=== PATIENT | female | born 1930 | race Caucasian/White ===

== ENCOUNTER 2017-09-09 05:12 | Inpatient (IN) | payer OTHER, MEDICARE ==
--- NOTE | 2017-09-09 05:40 | PDOC ---
History of Present Illness - General Chief Complaint: Nausea/Vomiting Stated Complaint: N/V/D Time Seen by Provider: 09/09/17 05:39 History Source: Patient Exam Limitations: No Limitations - History of Present Illness Initial Comments: 09/09/17 05:49 This is an elderly 87-year-old female brought in by her family for evaluation of nausea vomiting and diarrhea. Patient has a history of small bowel obstruction with similar symptoms in the past. Patient denies any fevers or chills. Patient is complaining of some diffuse abdominal pain and abdominal distention. PAST MEDICAL HISTORY: no significant history PAST SURGICAL HISTORY: no significant history FAMILY HISTORY: no pertinant history SOCIAL HISTORY: Pt lives with family and is employed. MEDICATIONS: reviewed ALLERGIES: As per nursing notes Review of Systems General: No fevers or chills, no weakness, no weight loss HEENT: No change in vision. No sore throat,. No ear pain CardioVascular: No chest pain or shortness of breath Respiratory:No cough, or wheezing. Gastrointestinal: Positive nausea vomiting and diarrhea, positive history of SBO Genitourinary: No dysuria, hematuria, or frequency Musculoskeletal: No joint or muscle pain or swelling Neurologic: No headache, vertigo, dizziness or loss of consciousness Psychiatric: nor depression Skin: No rashes or easy bruising Endocrine: no increased thirst or abnormal weight change Allergic: no skin or latex allergy All other systems reviewed and normal Exam: General: Well-nourished well-developed individual, no acute distress HEENT: Throat: Normal, tonsils normal, no erythema or exudate Neck: Supple, no meningeal signs, no lymphadenopathy Eyes::Pupils equal reactive and round, extraocular motion intact Chest: Nontender to palpation Cardiac: S1-S2 normal, regular rate and rhythm, no murmurs rubs or gallops Respiratory: Lungs clear to auscultation bilateral Abdomen: Soft, somewhat distended, normal bowel sounds, moderately tender diffusely to palpation Extremities: Warm, dry, no cyanosis, clubbing, or edema Skin: No rashes Neuro: Alert and oriented x3, CN II - XII intact, nonfocal exam with normal strength, normal sensation, normal reflexes, normal gait, Psych: Normal mood and affect Medical decision making this is an 87-year-old female who comes in with nausea vomiting and diarrhea most likely secondary to a partial small bowel obstruction. We'll order workup including CBC, comp, lipase, EKG, CT abdomen and pelvis. While reassessed and follow results of workup 09/09/17 06:51 Reevaluation patient feels much better after some morphine and Zofran and fluids. Workup is still pending. Care of this patient was transferred to Dr. Anderson at 7am. Case discussed in detail with oncoming Emergency Physician including history, physical exam and ancillary studies. Oncoming Emergency Physician has assumed care for the patient and will complete the evaluation and treatment. Patient is aware of the plan. Pt is clinically unchanged and stable. Past History - Past Medical History Allergies/Adverse Reactions: Allergies Allergy/AdvReac Type Severity Reaction Status Date / Time codeine [Codeine] Allergy Unknown Verified 10/04/12 08:43 nitrofurantoin Allergy Verified 09/09/17 05:39 strawberry Allergy Verified 09/09/17 05:40 escitalopram [From Lexapro] AdvReac Verified 09/09/17 05:39 Home Medications: Ambulatory Orders Unobtainable [Unobtainable] 09/09/17 COPD: No GI Disorders: Yes (IBS, PARTIAL BOWEL OBSTRUCTIONS) Disorders: Yes (FREQUENT UTI'S) - Surgical History Appendectomy: Yes - Suicide/Smoking/Psychosocial Hx Smoking Status: No Smoking History: Unknown if ever smoked Number of Cigarettes Smoked Daily: 0 Drug/Substance Use Hx: No Substance Use Type: None *Physical Exam - Vital Signs Last Vital Signs Temp Pulse Resp BP Pulse Ox 97.4 F L 73 18 142/79 99 09/09/17 05:17 09/09/17 05:17 09/09/17 05:17 09/09/17 05:17 09/09/17 05:17 ED Treatment Course - LABORATORY CBC & Chemistry Diagram: 09/09/17 05:35 09/09/17 05:35 *DC/Admit/Observation/Transfer Diagnosis at time of Disposition: Abdominal pain Qualifiers: Abdominal location: generalized Qualified Code(s): R10.84 - Generalized abdominal pain - Discharge Dispostion Condition at time of disposition: Stable - Referrals Referrals: ON STAFF,NOT [Primary Care Provider] - - Patient Instructions - Post Discharge Activity
[2017-09-09] MEDS ORDERED: morphine CARPU-JECT 4 MG/1 ML DISP.SYRIN IVPUSH ONE (05:56)
[2017-09-09] MEDS ORDERED: ONDANSETRON 4 MG/2 ML VIAL IVPB ONE (05:56)
[2017-09-09] MEDS ORDERED: SODIUM CHLORIDE 1,000 ML IV ONE (05:56)
[2017-09-09] MEDS ORDERED: morphine SULFATE 4 MG/ML VIAL ONE (05:59)
[2017-09-09] MEDS ORDERED: ONDANSETRON 4 MG/2 ML VIAL ONE (05:59)
[2017-09-09 06:15] LABS: BASO % 0.2 % (0-2.0); EOS % 0.1 % (0-4.5); HEMATOCRIT 39.1 % (32.4-45.2); HEMOGLOBIN 13.1 GM/dL (10.7-15.3); LYMPH % 11.8 % (8-40); MCH 28.1 pg (25.7-33.7); MCHC 33.7 g/dl (32.0-36.0); MEAN CELL VOLUME 83.5 fl (80-96); MONO % 5.3 % (3.8-10.2); NEUT % 82.6 % (42.8-82.8); PLATELET COUNT 266 K/MM3 (134-434); RBC 4.68 M/mm3 (3.60-5.2); RDW 15.4 % (11.6-15.6); WHITE BLOOD COUNT 14.1 K/mm3 (4.0-10.0)
[2017-09-09 07:04] LABS: ALK PHOS 48 U/L (45-117); ANION GAP 11 (8-16); BILIRUBIN,TOTAL 0.6 mg/dL (0.2-1.0); BLOOD UREA NITROGEN 14 mg/dL (7-18); CALCIUM 9.4 mg/dL (8.5-10.1); CHLORIDE 95 mmol/L (98-107); CO2 26 mmol/L (21-32); CREATININE 0.6 mg/dL (0.55-1.02); GLUCOSE,RANDOM 145 mg/dL (74-106); LIPASE 117 U/L (73-393); POTASSIUM 3.6 mmol/L (3.5-5.1); SGOT/AST 14 U/L (15-37); SGPT/ALT 15 U/L (12-78); SODIUM 132 mmol/L (136-145); TOT PROT 7.1 g/dl (6.4-8.2)
[2017-09-09] MEDS ORDERED: SODIUM CHLORIDE 1,000 ML IV SCH (08:45)
--- NOTE | 2017-09-09 10:15 | PDOC ---
*Physical Exam - Vital Signs Last Vital Signs Temp Pulse Resp BP Pulse Ox 97.4 F L 73 18 142/79 99 09/09/17 05:17 09/09/17 05:17 09/09/17 05:17 09/09/17 05:17 09/09/17 05:17 ED Treatment Course - LABORATORY CBC & Chemistry Diagram: 09/10/17 06:00 09/10/17 06:00 - ADDITIONAL ORDERS Additional order review: Laboratory Results 09/09/17 05:35 Sodium 132 L Potassium 3.6 Chloride 95 L Carbon Dioxide 26 Anion Gap 11 BUN 14 Creatinine 0.6 Creat Clearance w eGFR > 60 Random Glucose 145 H Calcium 9.4 Total Bilirubin 0.6 AST 14 L ALT 15 Alkaline Phosphatase 48 Total Protein 7.1 Albumin 4.0 Lipase 117 09/09/17 05:35 RBC 4.68 MCV 83.5 MCHC 33.7 RDW 15.4 MPV 8.0 Neutrophils % 82.6 Lymphocytes % 11.8 Monocytes % 5.3 Eosinophils % 0.1 Basophils % 0.2 - Medications Given in the ED: ED Medications Discontinued Medications Generic Name Dose Route Start Last Admin Trade Name Freq PRN Reason Stop Dose Admin Sodium Chloride 1,000 mls @ 1,000 mls/hr 09/09/17 05:56 09/09/17 05:58 Normal Saline - IV 09/09/17 06:55 1,000 mls/hr .Q1H ONE Administration Morphine Sulfate 4 mg 09/09/17 05:56 09/09/17 05:58 Morphine Injection - IVPUSH 09/09/17 05:57 4 mg ONCE ONE Administration Ondansetron HCl 8 mg 09/09/17 05:56 09/09/17 05:58 Zofran Injection IVPB 09/09/17 05:57 8 mg ONCE ONE Administration Medical Decision Making - Medical Decision Making 09/09/17 10:20 This patient is an 87 yo F with a prior history of SBO who presented overnight due to nausea and vomiting CT demonstrates moderately dilated loops of small bowel through out the abdomen and pelvis Colon does contain air and stool but is largely collapsed high grade partial SBO Pt refusing NGT Call placed to daughter to inform her She is requesting that pt doctor - Dr Brown be contacted Call placed to [phone] 09/09/17 12:13 Case reviewed with Hospitalist Admitted to their service Case reviewed with Dr Altman Will continue IV hydration Clinical Impression: small bowel obstruction, initial presentation *DC/Admit/Observation/Transfer Diagnosis at time of Disposition: Abdominal pain Qualifiers: Abdominal location: generalized Qualified Code(s): R10.84 - Generalized abdominal pain - Discharge Dispostion Condition at time of disposition: Stable Admit: Yes - Referrals - Patient Instructions - Post Discharge Activity
[2017-09-09 10:29] LABS: PH,URINE 7.5 (4.5-8); URINE BILIRUBIN Negative (NEGATIVE); URINE BLOOD Negative (NEGATIVE); URINE GLUCOSE (UA) Negative (NEGATIVE); URINE KETONE 1+ (NEGATIVE); URINE LEUK ESTERASE Negative (NEGATIVE); URINE NITRITE Negative (NEGATIVE); URINE PROTEIN Negative (NEGATIVE); URINE UROBILINOGEN 0.2 (0.2-1.0)
[2017-09-09 10:30] LABS: URINE APPEARANCE SL CLOUDY; URINE COLOR AMBER
--- NOTE | 2017-09-09 12:01 | HP ---
CHIEF COMPLAINT: GI: Dr. 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 Patient was in her usual state of health until last evening. After eating dinner she developed abdominal discomfort which progressed to pain. At around midnight she had several large bowel movements with well-formed stools. Several hours later she vomited about 5-6 times. The vomitus was mostly the food she ate for dinner. Patient called EMS and was brought to the ED. Vomiting and diarrhea have subsided, and pain has significantly improved. Patient denies melena, hematochezia, hematuria. She denies fever, sweats, chills. She has not had diarrhea. She was treated four weeks ago for a UTI, received three doses of ertapenem and then continued on PO Cipro. Patient denies UTI symptoms at this time. ER course was notable for: (1) WBC 14.1 (2) CTAP: high-grade partial SBO (3) Afebrile Recent Travel: No PAST MEDICAL HISTORY: Recurrent UTIs Uterine cancer Irritable bowel syndrome Recurrent SBOs - 3 or 4 over past 15 years PAST SURGICAL HISTORY: Appendectomy 1961 Hysterectomy 1987 (followed by radiation) Social History: Smoking: quit 60 years ago Alcohol: glass of wine before dinner Drugs: no Family History: non-contributory Allergies codeine [Codeine] Allergy (Unknown, Verified 10/04/12 08:43) nitrofurantoin Allergy (Verified 09/09/17 05:39) strawberry Allergy (Verified 09/09/17 05:40) escitalopram [From Lexapro] Adverse Reaction (Verified 09/09/17 05:39) HOME MEDICATIONS: Home Medications Medication Instructions Recorded Methenamine Hippurate [Hiprex [Nf] 1 gm PO BID 09/09/17 -] REVIEW OF SYSTEMS CONSTITUTIONAL: Absent: fever, chills, diaphoresis, generalized weakness, malaise, loss of appetite, weight change HEENT: Absent: rhinorrhea, nasal congestion, throat pain, throat swelling, difficulty swallowing, mouth swelling, ear pain, eye pain, visual changes CARDIOVASCULAR: Absent: chest pain, syncope, palpitations, irregular heart rate, lightheadedness , peripheral edema RESPIRATORY: Absent: cough, shortness of breath, dyspnea with exertion, orthopnea, wheezing, stridor, hemoptysis GASTROINTESTINAL: +abdominal pain, nausea, vomiting Absent: abdominal distension, diarrhea, constipation, melena, hematochezia GENITOURINARY: Absent: dysuria, frequency, urgency, hesitancy, hematuria, flank pain, genital pain MUSCULOSKELETAL: Absent: myalgia, arthralgia, joint swelling, back pain, neck pain SKIN: Absent: rash, itching, pallor HEMATOLOGIC/IMMUNOLOGIC: Absent: easy bleeding, easy bruising, lymphadenopathy, frequent infections ENDOCRINE: Absent: unexplained weight gain, unexplained weight loss, heat intolerance, cold intolerance NEUROLOGIC: Absent: headache, focal weakness or paresthesias, dizziness, unsteady gait, seizure, mental status changes, bladder or bowel incontinence PSYCHIATRIC: Absent: anxiety, depression, suicidal or homicidal ideation, hallucinations. PHYSICAL EXAMINATION Vital Signs - 24 hr 09/09/17 09/09/17 09/09/17 05:17 09:00 10:23 Temperature 97.4 F L Pulse Rate 73 Pulse Rate [ 80 82 Left] Respiratory 18 18 Rate Blood Pressure 142/79 Blood Pressure 126/68 128/60 [Right Arm] O2 Sat by Pulse 99 97 97 Oximetry (%) GENERAL: Awake, alert, and fully oriented, in no acute distress. HEAD: Normal with no signs of trauma. EYES: Pupils equal, round and reactive to light, extraocular movements intact, sclera anicteric, conjunctiva clear. No lid lag. EARS, NOSE, THROAT: Ears normal, nares patent, oropharynx clear without exudates. Moist mucous membranes. NECK: Normal range of motion, supple without lymphadenopathy, JVD, or masses. LUNGS: Breath sounds equal, clear to auscultation bilaterally. No wheezes, and no crackles. No accessory muscle use. HEART: Regular rate and rhythm, normal S1 and S2 ABDOMEN: Soft, nontender, not distended, absent bowel sounds MUSCULOSKELETAL: Normal range of motion at all joints. No bony deformities or tenderness. No CVA tenderness. UPPER EXTREMITIES: 2+ pulses, warm, well-perfused. No cyanosis. No clubbing. No peripheral edema. LOWER EXTREMITIES: 2+ pulses, warm, well-perfused. No calf tenderness. No peripheral edema. NEUROLOGICAL: Cranial nerves II-XII intact. Normal speech. Normal gait. Laboratory Results - last 24 hr 09/09/17 09/09/17 09/09/17 05:35 05:35 10:12 WBC 14.1 H RBC 4.68 Hgb 13.1 Hct 39.1 MCV 83.5 MCH 28.1 MCHC 33.7 RDW 15.4 Plt Count 266 MPV 8.0 Neutrophils % 82.6 Lymphocytes % 11.8 Monocytes % 5.3 Eosinophils % 0.1 Basophils % 0.2 Sodium 132 L Potassium 3.6 Chloride 95 L Carbon Dioxide 26 Anion Gap 11 BUN 14 Creatinine 0.6 Creat Clearance w eGFR > 60 Random Glucose 145 H Calcium 9.4 Total Bilirubin 0.6 AST 14 L ALT 15 Alkaline Phosphatase 48 Total Protein 7.1 Albumin 4.0 Lipase 117 Urine Color Terri Urine Appearance Sl cloudy Urine pH 7.5 Ur Specific [place] 1.015 Urine Protein Negative Urine Glucose (UA) Negative Urine Ketones 1+ H Urine Blood Negative Urine Nitrite Negative Urine Bilirubin Negative Urine Urobilinogen 0.2 Ur Leukocyte Esterase Negative ASSESSMENT/PLAN: 87 year-old female with a PMH and PSH significant for recurrent UTIs, irritable bowel syndrome, uterine cancer s/p hysterectomy and radiation (1987), s/p appendectomy (1961), and recurrent SBOs (3 or 4 over past 15 years, none requiring surgery). SBO Recurrent SBOs --CTAP: high-grade partial SBO --NPO --IV fluids --will need NGT if vomiting recurs --mild leukocytosis may be from vomiting, no fever; cultures collected and sent; no abx for now; monitor fever curve closely --surgical consult Dr. Altman requested Recurrent UTIs --most recent UTI one month ago, ertapenem x 3 days followed by a course of Cipro --UA negative --continue methenamine Irritable bowel syndrome --keep NPO FEN Fluids: D5NS@100mL/hr Electrolytes: replete as indicated Nutrition: NPO DVT prophylaxis: subq heparin Physical therapy Dispo: continues to require inpatient care. Full code. Visit type - Emergency Visit Emergency Visit: Yes ED Registration Date: 09/09/17 Care time: The patient presented to the Emergency Department on the above date and was hospitalized for further evaluation of their emergent condition. - New Patient This patient is new to me today: Yes Date on this admission: 09/09/17 - Critical Care Critical Care patient: No Hospitalist Screening - Colonoscopy Questionnaire Colonoscopy Questionnaire: Colonoscopy Questionnaire - Patient: 50 - 75 years old and never had a screening colonoscopy: No History of colon or rectal polyps, or CA: Yes (uterine cancer) History of IBD, Crohn's disease or UC: Yes History of abdominal radiation therapy as a child: No - Relative: 1 with colon or rectal CA, or polyps at age 60 or younger: Unknown Colon or rectal CA diagnosed at age 45 or younger: Unknown Multiple relatives with colon or rectal CA: Unknown (Patient states last colonoscopy x 3 years; told by Dr. Dunlap no further testing at her age) - Outcome: Screening Result: Positive Screen
[2017-09-09] MEDS ORDERED: SODIUM CHLORIDE 1,000 ML IV STA (12:06)
[2017-09-09] MEDS ORDERED: ONDANSETRON 4 MG/2 ML VIAL IVPUSH PRN (12:46)
[2017-09-09] MEDS ORDERED: DEXTROSE 5%-NORMAL SALINE 1,000 ML IV SCH (13:00)
[2017-09-09 13:32] VITALS: BMI 21.2
[2017-09-09] MEDS ORDERED: HEPARIN NA (PORCINE) 5,000 UNITS/ML 1ML VIAL SQ SCH (18:00)
--- NOTE | 2017-09-09 18:37 | EKG ---
Test Reason : Blood Pressure : / mmHG Vent. Rate : 077 BPM Atrial Rate : 077 BPM P-R Int : 182 ms QRS Dur : 074 ms QT Int : 420 ms P-R-T Axes : 036 006 101 degrees QTc Int : 475 ms NORMAL SINUS RHYTHM NONSPECIFIC T WAVE ABNORMALITY ABNORMAL ECG NO PREVIOUS ECGS AVAILABLE Confirmed by LINDA LANDRY, DORA ([id number]) on 09/09/2017 6:36:49 PM Referred By: TK BRIZUELA Confirmed By:DORA MCKEON MD
[2017-09-09] MEDS: DEXTROSE 5%-NORMAL SALINE 1,000 ML IV SCH (19:12)
[2017-09-09] MEDS: HEPARIN NA (PORCINE) 5,000 UNITS/ML 1ML VIAL SQ SCH (21:03)
[2017-09-09] MEDS: ACETAMINOPHEN 1000 MG/100 ML VIAL (NON FORMULARY) IVPB PRN (21:12)
[2017-09-10 08:54] LABS: ALK PHOS 30 U/L (32-92); ANION GAP 4 (8-16); BASO % 0.4 % (0-2.0); BILIRUBIN,TOTAL 0.6 mg/dl (0.2-1.0); BLOOD UREA NITROGEN 6 mg/dl (7-18); CALCIUM 7.3 mg/dl (8.4-10.2); CHLORIDE 105 mmol/L (98-107); CO2 24 mmol/L (22-28); CREATININE 0.4 mg/dl (0.6-1.3); EOS % 1.3 % (0-4.5); GLUCOSE,RANDOM 97 mg/dl (74-106); HEMATOCRIT 32.2 % (32.4-45.2); HEMOGLOBIN 10.6 GM/dl (10.7-15.3); LYMPH % 36.6 % (8-40); MAGNESIUM 1.7 mg/dL (1.8-2.4); MCH 27.7 pg (25.7-33.7); MCHC 32.8 g/dl (32.0-36.0); MEAN CELL VOLUME 84.4 fl (80-96); MEAN PLT VOLUME 7.7 fl (7.5-11.1); MONO % 8.5 % (3.8-10.2); NEUT % 53.2 % (42.8-82.8); PHOSPHOROUS 2.2 mg/dl (2.5-4.6); PLATELET COUNT 241 K/MM3 (134-434); RBC 3.82 M/mm3 (3.60-5.2); RDW 14.6 % (11.6-15.6); SGOT/AST 16 U/L (10-42); SGPT/ALT 11 U/L (10-40); SODIUM 133 mmol/L (136-145); TOT PROT 4.8 g/dl (6.4-8.3); WHITE BLOOD COUNT 3.9 K/mm3 (4.0-10.8)
[2017-09-10 09:06] LABS: POTASSIUM 2.9 mmol/L (3.5-5.1)
--- NOTE | 2017-09-10 09:49 | CONSULT ---
- Consultation REQUESTING PROVIDER: YADIEL Kulkarni CONSULT REQUEST: We have been asked to surgically evaluate this patient for management of a bowel obstruction PCP:Marga Kulkarni HISTORY OF PRESENT ILLNESS:87 y/o w/female presented to the [facility] ER w/ n/v/ abdominal pain; w/u revealed a " partial high grade sbo"; she was admitted for further management; she had an SBO 3-4 months ago that responded to conservative tx. She has no n/v today; has not passed flatus. PMHx: as noted in H and P PSHx: KATHERYN/appendectomy Home Medications Medication Instructions Recorded Methenamine Hippurate [Hiprex [Nf] 1 gm PO BID 09/09/17 -] Allergies Allergy/AdvReac Type Severity Reaction Status Date / Time codeine [Codeine] Allergy Unknown Verified 10/04/12 08:43 nitrofurantoin Allergy Verified 09/09/17 05:39 strawberry Allergy Verified 09/09/17 05:40 escitalopram [From Lexapro] AdvReac Verified 09/09/17 05:39 PHYSICAL EXAM: GENERAL: Awake, alert, and fully oriented, in no acute distress. HEAD: Normal with no signs of trauma. EYES: PERRL, sclera anicteric, conjunctiva clear. NECK: Normal ROM, supple without lymphadenopathy, JVD, or masses. ABDOMEN: Soft, nontender, not distended, hypoactive bowel sounds, no guarding, no rebound, no masses. No organomegaly. No hernias; healed surgical scras. MUSCULOSKELETAL: Normal ROM at all joints. No bony deformities or tenderness. No CVA tenderness. UPPER EXTREMITIES: 2+ pulses, warm, well-perfused. No cyanosis. Cap refill <2 seconds. No peripheral edema. LOWER EXTREMITIES: 2+ pulses, warm, well-perfused. No calf tenderness. No peripheral edema. NEUROLOGICAL: Normal speech, gait not observed. PSYCH: Cooperative. Good eye contact. Appropriate mood and affect. SKIN: Warm, dry, normal turgor, no rashes or lesions noted. Vital Signs Temperature 98.0 F 09/10/17 08:04 Pulse Rate 73 09/10/17 08:04 Respiratory Rate 18 09/10/17 08:04 Blood Pressure 127/64 09/10/17 08:04 O2 Sat by Pulse Oximetry (%) 96 09/10/17 08:04 Lab Results WBC 3.9 K/mm3 (4.0-10.8) L 09/10/17 06:00 RBC 3.82 M/mm3 (3.60-5.2) 09/10/17 06:00 Hgb 10.6 GM/dl (10.7-15.3) L 09/10/17 06:00 Hct 32.2 % (32.4-45.2) L 09/10/17 06:00 MCV 84.4 fl (80-96) 09/10/17 06:00 MCHC 32.8 g/dl (32.0-36.0) 09/10/17 06:00 RDW 14.6 % (11.6-15.6) 09/10/17 06:00 Plt Count 241 K/MM3 (134-434) 09/10/17 06:00 Sodium 133 mmol/L (136-145) L 09/10/17 06:00 Potassium 2.9 mmol/L (3.5-5.1) L* 09/10/17 06:00 Chloride 105 mmol/L (98-107) 09/10/17 06:00 Carbon Dioxide 24 mmol/L (22-28) 09/10/17 06:00 Anion Gap 4 (8-16) L 09/10/17 06:00 BUN 6 mg/dl (7-18) L 09/10/17 06:00 Creatinine 0.4 mg/dl (0.6-1.3) L 09/10/17 06:00 Random Glucose 97 mg/dl (74-106) 09/10/17 06:00 Calcium 7.3 mg/dl (8.4-10.2) L 09/10/17 06:00 CT scan a/p reviewed; w/u to date reviewed IMP:partial SBO PLAN: NPO/IVF/serial exams and axr's; correct e-lyte abnormalities; will f/u todays abdominal films once completed. Sivakumar Altman MD FACS Visit type - Case Type Case Type: ED Admission - Emergency Emergency Visit: Yes ED Registration Date: 09/09/17 Care time: The patient presented to the Emergency Department on the above date and was hospitalized for further evaluation of their emergent condition. - New patient This patient is new to me today: Yes Date on this admission: 09/10/17 - Critical Care Critical Care patient: No
[2017-09-10] MEDS: POTASSIUM CHLORIDE TABS 20 MEQ TABLET.ER (FP) PO SCH ×2 (10:04→17:13)
[2017-09-10] MEDS: HEPARIN NA (PORCINE) 5,000 UNITS/ML 1ML VIAL SQ SCH ×2 (11:04→21:38)
--- NOTE | 2017-09-10 11:56 | PN ---
Physical Exam: SUBJECTIVE: Patient seen and examined. Feels better than yesterday. Able to walk 4x around the nurses' station. A lot of burping with ice chips/sips of water. Minimal flatus. No vomiting. OBJECTIVE: Vital Signs Period Temp Pulse Resp BP Sys/Quesada Pulse Ox Last 24 Hr 97.8 F-99 F 63-80 18-19 97-129/44-66 96-97 GENERAL: The patient is awake, alert, and fully oriented, in no acute distress. LUNGS: Breath sounds equal, clear to auscultation bilaterally, no wheezes, no crackles, no accessory muscle use. HEART: Regular rate and rhythm, S1, S2 ABDOMEN: Soft, nontender, nondistended, absent bowel sounds on right, hypoactive on left EXTREMITIES: 2+ pulses, warm, well-perfused, no edema. NEUROLOGICAL: Cranial nerves II through XII grossly intact. Normal speech, steady gait Laboratory Results - last 24 hr 09/09/17 09/10/17 09/10/17 12:10 06:00 06:00 WBC 3.9 L RBC 3.82 Hgb 10.6 L Hct 32.2 L MCV 84.4 MCH 27.7 MCHC 32.8 RDW 14.6 Plt Count 241 MPV 7.7 Neutrophils % 53.2 Lymphocytes % 36.6 Monocytes % 8.5 Eosinophils % 1.3 Basophils % 0.4 Sodium 133 L Potassium 2.9 L* Chloride 105 Carbon Dioxide 24 Anion Gap 4 L BUN 6 L Creatinine 0.4 L Creat Clearance w eGFR > 60 Random Glucose 97 Lactic Acid 1.1 Calcium 7.3 L Phosphorus 2.2 L Magnesium 1.7 L Total Bilirubin 0.6 AST 16 ALT 11 Alkaline Phosphatase 30 L Total Protein 4.8 L Albumin 3.0 L Active Medications Generic Name Dose Route Start Last Admin Trade Name Freq PRN Reason Stop Dose Admin Acetaminophen 1,000 mg 09/09/17 12:51 09/09/17 21:12 Ofirmev Injection - IVPB 1,000 mg Q8H PRN Administration PAIN LEVEL 1-5 Heparin Sodium (Porcine) 5,000 unit 09/09/17 22:00 09/10/17 11:04 Heparin - SQ 5,000 unit BID LIAM Administration Dextrose/Sodium Chloride 1,000 mls @ 100 mls/hr 09/09/17 13:32 09/09/17 19:12 D5-Ns - IV 100 mls/hr ASDIR LIAM Administration Ondansetron HCl 4 mg 09/09/17 12:46 Zofran Injection IVPUSH Q6H PRN NAUSEA Potassium Chloride 40 meq 09/10/17 10:15 09/10/17 10:04 K-Dur - PO 09/10/17 18:01 40 meq Q6HPO LIAM Administration ASSESSMENT/PLAN: 87 year-old female with a PMH and PSH significant for recurrent UTIs, irritable bowel syndrome, uterine cancer s/p hysterectomy and radiation (1987), s/p appendectomy (1961), and recurrent SBOs (3 or 4 over past 15 years, none requiring surgery). SBO Recurrent SBOs --09/09 CTAP: high-grade partial SBO --09/10 Abd xray: no change --NPO --IV fluids --will need NGT if vomiting recurs --leukocytosis resolved; no fever; cultures NGTD; no abx for now --seen and evaluated by surgeon Dr. Altman --repeat abdominal xray in am Recurrent UTIs --most recent UTI one month ago, ertapenem x 3 days followed by a course of Cipro --UA negative --continue methenamine Irritable bowel syndrome --keep NPO FEN Fluids: D5NS@100mL/hr Electrolytes: replete as indicated Nutrition: NPO DVT prophylaxis: subq heparin Physical therapy Dispo: continues to require inpatient care. Full code. Abdominal xray with little change from CT; burps when sips water, minimal flatus remain NPO Visit type - Emergency Visit Emergency Visit: Yes ED Registration Date: 09/09/17 Care time: The patient presented to the Emergency Department on the above date and was hospitalized for further evaluation of their emergent condition. - New Patient This patient is new to me today: No - Critical Care Critical Care patient: No
[2017-09-10 12:06] LABS: ACTIVATED PTT 28.8 SECONDS (24.0-38.9)
[2017-09-10 12:11] LABS: INR 1.13 (0.82-1.09); PROTHROMBIN TIME (PATIENT) 12.6 SEC (10.2-13.0)
[2017-09-10] MEDS: DEXTROSE 5%-NORMAL SALINE 1,000 ML IV SCH (13:40)
[2017-09-10] MEDS: ACETAMINOPHEN 1000 MG/100 ML VIAL (NON FORMULARY) IVPB PRN (21:39)
--- NOTE | 2017-09-11 08:01 | PN ---
Progress Note (short form) - Note Progress Note: 87yo patient being followed for SBO patient seen and examined at bedside. Patient states she is passing gas and belching but has not moved her bowels yet. She denies any pain or new symptoms. She is ambulating without assistance and feels well overall. Vital Signs Temp 97.4 F L 09/11/17 05:46 Pulse 73 09/11/17 05:46 Resp 18 09/11/17 05:46 BP 138/62 09/11/17 05:46 Pulse Ox 97 09/11/17 05:46 Intake & Output 09/10/17 09/10/17 09/11/17 11:59 23:59 11:59 Intake Total 1000 1100 1200 Balance 1000 1100 1200 Intake: IV 1000 1100 1200 D5-Ns - 1,000 ml @ 100 1000 1100 1200 mls/hr IV ASDIR LIAM Rx#: [id number] Other: Voiding Method Toilet Toilet # Unmeasured Voids Void 2 CBC, BMP 09/11/17 08:30 09/11/17 08:30 PE: A&Ox3 NAD unlabored resp on RA ABD: soft, non-tender, non-distended, midline incision scar noted, no evidence of erythema or organomegaly. Problem List - Problems (1) SBO (small bowel obstruction) Assessment/Plan: Plan: 1) Repeat Abd scan today, 2) Continue NPO 3) Pain meds 4) Trend labs 5) Surgery to follow Code(s): K56.609 - UNSP INTESTNL OBST, UNSP TO PARTIAL VERSUS COMPLETE OBST
[2017-09-11] MEDS: HEPARIN NA (PORCINE) 5,000 UNITS/ML 1ML VIAL SQ SCH ×2 (09:26→22:21)
[2017-09-11 10:56] LABS: BASO % 0.5 % (0-2.0); EOS % 1.8 % (0-4.5); HEMATOCRIT 39.2 % (32.4-45.2); HEMOGLOBIN 13.1 GM/dl (10.7-15.3); LYMPH % 53.2 % (8-40); MCH 28.7 pg (25.7-33.7); MCHC 33.4 g/dl (32.0-36.0); MEAN CELL VOLUME 85.9 fl (80-96); MEAN PLT VOLUME 7.4 fl (7.5-11.1); MONO % 8.6 % (3.8-10.2); NEUT % 35.9 % (42.8-82.8); PLATELET COUNT 269 K/MM3 (134-434); RBC 4.56 M/mm3 (3.60-5.2); RDW 14.4 % (11.6-15.6); WHITE BLOOD COUNT 4.9 K/mm3 (4.0-10.8)
--- NOTE | 2017-09-11 11:26 | DS ---
Physical Exam: SUBJECTIVE: Patient seen and examined, ambulatory throughout nursing station, patient reports flatus. 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 Patient was in her usual state of health until last evening. After eating dinner she developed abdominal discomfort which progressed to pain. At around midnight she had several large bowel movements with well-formed stools. Several hours later she vomited about 5-6 times. The vomitus was mostly the food she ate for dinner. Patient called EMS and was brought to the ED. Vomiting and diarrhea have subsided, and pain has significantly improved. Patient denies melena, hematochezia, hematuria. She denies fever, sweats, chills. She has not had diarrhea. She was treated four weeks ago for a UTI, received three doses of ertapenem and then continued on PO Cipro. Patient denies UTI symptoms at this time. ER course was notable for: (1) WBC 14.1 (2) CTAP: high-grade partial SBO (3) Afebrile Vital Signs Period Temp Pulse Resp BP Sys/Quesada Pulse Ox Last 24 Hr 97.4 F-98.5 F 73-99 18-19 116-154/62-78 96-97 PHYSICAL EXAM GENERAL: The patient is awake, alert, and fully oriented, in no acute distress. HEAD: Normal with no signs of trauma. EYES: PERRL, extraocular movements intact, sclera anicteric, conjunctiva clear. ENT: Ears normal, nares patent, oropharynx clear without exudates, moist mucous membranes. NECK: Trachea midline, full range of motion, supple. LUNGS: Breath sounds equal, clear to auscultation bilaterally, no wheezes, no crackles, no accessory muscle use. HEART: Regular rate and rhythm, S1, S2 without murmur, rub or gallop. ABDOMEN: Soft, hypoactive bowel sounds to all 4 quadrants, nondistended, no guarding, no rebound, no hepatosplenomegaly, no masses. EXTREMITIES: 2+ pulses, warm, well-perfused, no edema. NEUROLOGICAL: Cranial nerves II through XII grossly intact. Normal speech, gait not observed. PSYCH: Normal mood, normal affect. SKIN: Warm, dry, normal turgor, no rashes or lesions noted. LABS Laboratory Results - last 24 hr 09/10/17 09/11/17 06:00 08:30 WBC 4.9 RBC 4.56 Hgb 13.1 D Hct 39.2 D MCV 85.9 MCH 28.7 MCHC 33.4 RDW 14.4 Plt Count 269 MPV 7.4 L Neutrophils % 35.9 L Lymphocytes % 53.2 H Monocytes % 8.6 Eosinophils % 1.8 Basophils % 0.5 PT with INR 12.6 INR 1.13 PTT (Actin FS) 28.8 CMP CMP Sodium 135 mmol/L (136-145) L 09/11/17 08:30 Potassium 3.6 mmol/L (3.5-5.1) D 09/11/17 08:30 Chloride 106 mmol/L (98-107) 09/11/17 08:30 Carbon Dioxide 24 mmol/L (22-28) 09/11/17 08:30 Anion Gap 5 (8-16) L 09/11/17 08:30 BUN < 6 mg/dl (7-18) L 09/11/17 08:30 Creatinine < 0.8 mg/dl (0.6-1.3) D 09/11/17 08:30 Creat Clearance w eGFR > 60 (>60) 09/10/17 06:00 Random Glucose 94 mg/dl (74-106) 09/11/17 08:30 Lactic Acid 1.1 mmol/L (0.0-2.0) 09/09/17 12:10 Calcium 8.2 mg/dl (8.4-10.2) L 09/11/17 08:30 Phosphorus 1.9 mg/dl (2.5-4.6) L 09/11/17 08:30 Magnesium 2.0 mg/dL (1.8-2.4) 09/11/17 08:30 Total Bilirubin 0.6 mg/dl (0.2-1.0) 09/10/17 06:00 AST 16 U/L (10-42) 09/10/17 06:00 ALT 11 U/L (10-40) 09/10/17 06:00 Alkaline Phosphatase 30 U/L (32-92) L 09/10/17 06:00 Total Protein 4.8 g/dl (6.4-8.3) L 09/10/17 06:00 Albumin 3.0 g/dl (3.5-5.0) L 09/10/17 06:00 Lipase 117 U/L (73-393) 09/09/17 05:35 Microbiology 09/09/17 14:20 Blood - Peripheral Venous Blood Culture - Preliminary NO GROWTH OBTAINED AFTER 24 HOURS, INCUBATION TO CONTINUE FOR 4 DAYS. 09/09/17 10:12 Urine - Urine Clean Catch Urine Culture - Final NO GROWTH OBTAINED HOSPITAL COURSE: Patient was admitted from the emergency department for partial high grade SBO. Patient has a past medical history of SBO in past, treated with conservative treatment in past. She was kept NPO throughout hospital admission. Patient was evaluated by general surgeon, Dr Altman advised conserative measures at this time. leukocytosis resolved, likely secondary to leukomoid reaction. hyponatremia was noted upon admission, secondary to hypovolemia, which resolved with IVF. Patient and daughter requesting transfer to [facility], since her primary care physician (Dr Dodson) , general surgeon (Dr Lawson) and GI (Dr Dunlap) are affiliated with [facility]. Patient transferred to the care of the hospitalist service, case discussed with Dr Sosa, patient was accepted for transfer to [facility], care was endorsed to the care of Dr Sosa. Date of Admission:09/09/17 Date of Discharge: 09/11/17 Minutes to complete discharge: 45 Discharge Summary Reason For Visit: SMALL BOWEL OBSTRUCTION Current Active Problems Abdominal pain (Acute) SBO (small bowel obstruction) (Acute) Condition: Stable - Instructions Referrals: ON STAFF,NOT [Primary Care Provider] - Disposition: TRANSFER ACUTE CARE/OTHER HOSP - Home Medications Comprehensive Discharge Medication List: Ambulatory Orders Methenamine Hippurate [Hiprex [Nf] -] 1 gm PO BID 09/09/17 This patient is new to me today: Yes Date on this admission: 09/13/17 Emergency Visit: Yes ED Registration Date: 09/11/17 Care time: The patient presented to the Emergency Department on the above date and was hospitalized for further evaluation of their emergent condition. Critical Care patient: No - Discharge Referral Referred to [facility] Med P.C.: No
[2017-09-11 11:35] LABS: ANION GAP 5 (8-16); CALCIUM 8.2 mg/dl (8.4-10.2); CHLORIDE 106 mmol/L (98-107); CO2 24 mmol/L (22-28); GLUCOSE,RANDOM 94 mg/dl (74-106); PHOSPHOROUS 1.9 mg/dl (2.5-4.6); POTASSIUM 3.6 mmol/L (3.5-5.1); SODIUM 135 mmol/L (136-145)
[2017-09-11 11:36] LABS: CREATININE < 0.8 mg/dl (0.6-1.3)
[2017-09-11 11:37] LABS: BLOOD UREA NITROGEN < 6 mg/dl (7-18)
[2017-09-11] MEDS ORDERED: POTASSIUM PHOSPHATE 21 MM in SODIUM CHLORIDE 250 ML IVPB ONE (12:15)
[2017-09-11] MEDS: ACETAMINOPHEN 1000 MG/100 ML VIAL (NON FORMULARY) IVPB PRN (22:21)
[2017-09-11] MEDS: DEXTROSE 5%-NORMAL SALINE 1,000 ML IV SCH (22:21)
[2017-09-12] MEDS ORDERED: PT OWN MED DRAWER 7, Y5N ONE (05:25)
[2017-09-12 09:47] LABS: BASO % 0.8 % (0-2.0); EOS % 1.6 % (0-4.5); HEMATOCRIT 37.7 % (32.4-45.2); HEMOGLOBIN 13.1 GM/dl (10.7-15.3); LYMPH % 45.6 % (8-40); MCH 29.3 pg (25.7-33.7); MCHC 34.8 g/dl (32.0-36.0); MEAN CELL VOLUME 84.2 fl (80-96); MONO % 8.3 % (3.8-10.2); NEUT % 43.7 % (42.8-82.8); PLATELET COUNT 283 K/MM3 (134-434); RBC 4.48 M/mm3 (3.60-5.2); RDW 14.6 % (11.6-15.6)
[2017-09-12] MEDS: HEPARIN NA (PORCINE) 5,000 UNITS/ML 1ML VIAL SQ SCH ×2 (09:53→22:15)
[2017-09-12 10:11] LABS: ANION GAP 4 (8-16); CALCIUM 7.9 mg/dl (8.4-10.2); CHLORIDE 105 mmol/L (98-107); CO2 23 mmol/L (22-28); GLUCOSE,RANDOM 102 mg/dl (74-106); MAGNESIUM 1.9 mg/dL (1.8-2.4); PHOSPHOROUS 1.6 mg/dl (2.5-4.6); SODIUM 132 mmol/L (136-145)
[2017-09-12 10:27] LABS: CREATININE < 0.8 mg/dl (0.6-1.3)
[2017-09-12 10:28] LABS: BLOOD UREA NITROGEN < 6 mg/dl (7-18)
[2017-09-12] MEDS ORDERED: POTASSIUM CHLORIDE TABS 20 MEQ TABLET.ER (FP) PO ONE ×2 (10:41→17:00)
[2017-09-12] MEDS ORDERED: NAPH,MB-DB/K PH,MBDB POWDER PACKET PO ONE ×2 (10:41→17:00)
--- NOTE | 2017-09-12 11:01 | PN ---
Progress Note (short form) - Note Progress Note: Pt states that she tolerated clears yesterday night, no nausea/emesis or abdombinal pain. She did pass flatus yesterday but doesn't remember any bowel movements. Vital Signs Period Temp Pulse Resp BP Sys/Quesada Pulse Ox Last 24 Hr 98.0 F-98.3 F 65-86 16-18 123-128/61-72 95-97 GEN: appears comfortable ABD: soft, non-distended, non-tender. Healed vertical scar RLQ. CBC, BMP 09/12/17 09:30 09/12/17 09:30 Laboratory Tests 09/12/17 09:30 Phosphorus 1.6 L Magnesium 1.9 CXR: 09/11-incomplete SBO, slight decrease to SB dilatation A/P: 87 yo female with resolving SBO D/w Dr. Altman, may advance diet as tolerated today to soft Correct electrolytes as per the medical team Awaiting bowel movement
[2017-09-12] MEDS: DEXTROSE 5%-NORMAL SALINE 1,000 ML IV SCH (13:25)
--- NOTE | 2017-09-12 16:28 | PN ---
Physical Exam: SUBJECTIVE: Patient seen and examined. Pt reports no further abdominal pain, N/ V. Passing flatus. No BM yet. OBJECTIVE: Vital Signs - 24 hr 3 09/11/17 09/11/17 09/12/17 21:00 22:00 05:46 Temperature 98.3 F 98.0 F Pulse Rate 86 65 Respiratory 18 18 18 Rate Blood Pressure 124/72 128/67 O2 Sat by Pulse 97 97 95 Oximetry (%) 3 09/12/17 09/12/17 09:50 14:06 Temperature 98.2 F 97.3 F L Pulse Rate 77 92 H Respiratory 18 18 Rate Blood Pressure 128/61 123/61 O2 Sat by Pulse 96 Oximetry (%) GENERAL: The patient is awake, alert, and fully oriented, in no acute distress. HEAD: Normal with no signs of trauma. EYES: PERRL, extraocular movements intact, sclera anicteric, conjunctiva clear. No ptosis. ENT: Ears normal, nares patent, oropharynx clear without exudates, moist mucous membranes. NECK: Trachea midline, full range of motion, supple. LUNGS: Breath sounds equal, clear to auscultation bilaterally, no wheezes, no crackles, no accessory muscle use. HEART: Regular rate and rhythm, S1, S2 without murmur, rub or gallop. ABDOMEN: Soft, nontender, nondistended, normoactive bowel sounds, no guarding, no rebound, no hepatosplenomegaly, no masses. EXTREMITIES: 2+ pulses, warm, well-perfused, no edema. NEUROLOGICAL: Cranial nerves II through XII grossly intact. Normal speech, gait not observed. PSYCH: Normal mood, normal affect. SKIN: Warm, dry, normal turgor, no rashes or lesions noted Laboratory Results - last 24 hr 3 09/12/17 09/12/17 09:30 09:30 WBC 4.0 RBC 4.48 Hgb 13.1 Hct 37.7 MCV 84.2 MCH 29.3 MCHC 34.8 RDW 14.6 Plt Count 283 MPV 7.0 L Neutrophils % 43.7 Lymphocytes % 45.6 H Monocytes % 8.3 Eosinophils % 1.6 Basophils % 0.8 Sodium 132 L Potassium 3.0 L Chloride 105 Carbon Dioxide 23 Anion Gap 4 L BUN < 6 L Creatinine < 0.8 Random Glucose 102 Calcium 7.9 L Phosphorus 1.6 L Magnesium 1.9 Active Medications 3 Generic Name Dose Route Start Last Admin Trade Name Freq PRN Reason Stop Dose Admin Heparin Sodium (Porcine) 5,000 unit 09/09/17 22:00 09/12/17 09:53 Heparin - SQ 5,000 unit BID LIAM Administration Dextrose/Sodium Chloride 1,000 mls @ 100 mls/hr 09/09/17 13:32 09/11/17 22:21 D5-Ns - IV 100 mls/hr ASDIR LIAM Administration Ondansetron HCl 4 mg 09/09/17 12:46 Zofran Injection IVPUSH Q6H PRN NAUSEA Potassium Chloride 40 meq 09/12/17 17:00 K-Dur - PO 09/12/17 17:01 ONCE ONE Potassium Phos/Sodium Phos 1 packet 09/12/17 17:00 Phos-Nak Packet - PO 09/12/17 17:01 ONCE ONE ASSESSMENT/PLAN: 87yF with PMH recurrent UTI, IBS, uterine CA s/p hysterectomy and radiation therapy, recurrent SBO presented to the ED on 09/09/17 for abdominal pain, N/V. SBO - tolerating soft diet - abd xray reveals nonspecific, nonobstructive gas pattern - cont soft diet, bowel regimen - ok to DC IVF hypokalemia - replete po 40mEq BID today hypophophatemia - replete po 1 packet BID today - repeat labs in am DVT PPX - heparin 5000u BID FEN - tolerating po, DC IVF - BMP and phos in am - soft diet. Dispo: Pt currently requires further inpatient management of emergent conditions. DC home in AM if Labs WNL. Visit type - Emergency Visit Emergency Visit: Yes ED Registration Date: 09/09/17 Care time: The patient presented to the Emergency Department on the above date and was hospitalized for further evaluation of their emergent condition. - New Patient This patient is new to me today: Yes Date on this admission: 09/12/17 - Critical Care Critical Care patient: No
[2017-09-12] MEDS ORDERED: ACETAMINOPHEN 1000 MG/100 ML VIAL (NON FORMULARY) IVPB ONE (22:45)
[2017-09-13 06:41] VITALS: BP 142/75; PULSE 20; TEMP 97.5
[2017-09-13 08:55] LABS: BASO % 0.8 % (0-2.0); EOS % 1.9 % (0-4.5); HEMATOCRIT 37.5 % (32.4-45.2); HEMOGLOBIN 12.6 GM/dl (10.7-15.3); LYMPH % 49.7 % (8-40); MCH 28.2 pg (25.7-33.7); MCHC 33.5 g/dl (32.0-36.0); MEAN CELL VOLUME 84.2 fl (80-96); MEAN PLT VOLUME 7.6 fl (7.5-11.1); MONO % 8.6 % (3.8-10.2); PLATELET COUNT 278 K/MM3 (134-434); RBC 4.45 M/mm3 (3.60-5.2); RDW 14.3 % (11.6-15.6)
[2017-09-13 09:40] LABS: ANION GAP 6 (8-16); BLOOD UREA NITROGEN 6 mg/dl (7-18); CALCIUM 8.2 mg/dl (8.4-10.2); CHLORIDE 105 mmol/L (98-107); CO2 21 mmol/L (22-28); GLUCOSE,RANDOM 97 mg/dl (74-106); PHOSPHOROUS 2.2 mg/dl (2.5-4.6); POTASSIUM 3.9 mmol/L (3.5-5.1); SODIUM 132 mmol/L (136-145)
[2017-09-13 09:41] LABS: CREATININE < 0.8 mg/dl (0.6-1.3)
[2017-09-13] MEDS: HEPARIN NA (PORCINE) 5,000 UNITS/ML 1ML VIAL SQ SCH (10:36)
[2017-09-13] MEDS ORDERED: NAPH,MB-DB/K PH,MBDB POWDER PACKET PO ONE (17:00)
== END 2017-09-13 10:30 | disposition home or self-care (01) | DRG 389 ==
LOC: FER 05:12 → FM/S 12:23
PROVIDERS: ADMIT Hospitalist; ATTEND Nurse Practitioner Family
DX: K56.609 Unspecified intestinal obstruction, unspecified as to partial versus complete obstruction (principal); E87.1 Hypo-osmolality and hyponatremia; K58.9 Irritable bowel syndrome, unspecified; E86.1 Hypovolemia; E87.6 Hypokalemia; E83.39 Other disorders of phosphorus metabolism; R11.2 Nausea with vomiting, unspecified; Z87.440 Personal history of urinary (tract) infections; Z85.42 Personal history of malignant neoplasm of other parts of uterus
CPT/HCPCS: 36415; 71045-TC-FY; 74019-TC-FY; 74177-TC; 80048; 80053; 81003; 83605; 83690; 83735; 84100; 85025; 85610; 85730; 87040; 87086; 93005; 97116-GP; 97161-GP; 99283-25; J0131; J1644; J7030